=== PATIENT | male | born 1950 | race Caucasian/White ===

== ENCOUNTER → 2017-01-04 | Outpatient (CLI) | payer OTHER | LOC: BMCIMAGING 11:49 | PROVIDERS: ATTEND Podiatrist Foot & Ankle Surgery | DX: M19.072 Primary osteoarthritis, left ankle and foot (principal) ==

== ENCOUNTER 2017-01-23 20:59 | Emergency (ER) | payer OTHER ==
--- NOTE | 2017-01-23 22:07 | EDPHY ---
H & P Time Seen by Provider: 01/23/17 21:56 HPI/ROS: CHIEF COMPLAINT: Pain left axilla HISTORY OF PRESENT ILLNESS: 66-year-old male presents to the emergency department with pain in his left axilla since today. He denies any known trauma or injury. His friend who is a retired physician was concerned that he had red streaking noted on his left upper arm. Denies pain in the arm. He has no pain with range of motion. No chest pain or difficulty breathing. No pleuritic pain. Afebrile. REVIEW OF SYSTEMS: Constitutional: No fever, no chills. Eyes: No double or blurry vision. ENT: No sore throat. Respiratory: No cough, no shortness of breath. Cardiac: No chest pain. Gastrointestinal: No abdominal pain, vomiting or diarrhea. Genitourinary: No dysuria. Musculoskeletal: No neck or back pain. Skin: No rashes. Neurological: No headache. Past Medical/Surgical History: ACL repair, tonsillectomy Social History: Smoking Status: Never smoked Physical Exam: General Appearance: Alert, no distress. Afebrile. Eyes: Pupils equal and round. Extraocular motions are all intact. ENT: Mouth: Mucous membranes moist. Respiratory: No wheezing, rhonchi, or rales, lungs are clear to auscultation. Cardiovascular: Regular rate and rhythm. Gastrointestinal: Abdomen is soft and nontender, no masses, no rebound or guarding, bowel sounds normal. Neurological: Alert and oriented x 3, cranial nerves II through XII grossly intact Skin: Warm and dry, no rashes. No laceration or wounds noted. He does have what appears to be lymphangitis to the left medial humerus extending up into the left axilla. No palpable axillary lymphadenopathy. Musculoskeletal: Nontender to palpate along the cervical, thoracic or lumbar spine. Neck is supple. Extremities: Full range of motion and no peripheral edema. Psychiatric: Patient is oriented X 3, there is no agitation. Constitutional: Initial Vital Signs Temperature (C) 36.8 C 01/23/17 21:11 Heart Rate 67 01/23/17 21:11 Respiratory Rate 16 01/23/17 21:11 Blood Pressure 153/81 H 01/23/17 21:11 O2 Sat (%) 96 01/23/17 21:11 O2 Delivery Mode Room Air Allergies/Adverse Reactions: No Known Allergies Allergy (Unverified 01/23/17 21:11) Home Medications: Medication Instructions Recorded Aspirin 81mg (*) 01/23/17 Cephalexin [Keflex] 500 mg PO QID #28 cap 01/23/17 Medical Decision Making - Diagnostics Imaging Results: Imaging Impressions Extremity Venous Study 01/23/17 22:08 Impression: 1. No evidence of vein thrombosis in the left upper extremity. 2. Mildly prominent left axillary lymph nodes. Results called and discussed with SANJAY DELGADO on 01/23/2017 at 23:16 ED Course/Re-evaluation: 66-year-old male presents with pain in his right axilla as well as signs of lymphadenitis. Examine the patient's left upper extremity, I do not see any signs of skin infection or bite. No signs of septic joint. Patient was also seen examined by Dr. Pola Brown, secondary supervising physician, who recommended obtaining Doppler ultrasound to rule out DVT. Ultrasound was negative for DVT. Laboratory studies including CBC and chemistries were all within normal limits. Normal white blood cell count. Patient will be treated with oral antibiotics and warm compresses. Differential Diagnosis: Including but not limited to cellulitis, abscess, sepsis, DVT - Data Points Laboratory Results: Laboratory Results 01/23/17 23:10 01/23/17 23:10 01/23/17 01/23/17 23:10 23:10 WBC 7.37 10^3/uL 10^3/uL (3.80-9.50) RBC 4.58 10^6/uL 10^6/uL (4.40-6.38) Hgb 15.1 g/dL g/dL (13.7-17.5) Hct 43.1 % % (40.0-51.0) MCV 94.1 fL fL (81.5-99.8) MCH 33.0 pg pg (27.9-34.1) MCHC 35.0 g/dL g/dL (32.4-36.7) RDW 12.9 % % (11.5-15.2) Plt Count 218 10^3/uL 10^3/uL (150-400) MPV 10.7 fL fL (8.7-11.7) Neut % (Auto) 46.1 % % (39.3-74.2) Lymph % (Auto) 33.2 % % (15.0-45.0) [place] % (Auto) 13.6 % H % (4.5-13.0) Eos % (Auto) 5.7 % % (0.6-7.6) Baso % (Auto) 1.1 % % (0.3-1.7) Nucleat RBC Rel Count 0.0 % % (0.0-0.2) Absolute Neuts (auto) 3.40 10^3/uL 10^3/uL (1.70-6.50) Absolute Lymphs (auto) 2.45 10^3/uL 10^3/uL (1.00-3.00) Absolute Monos (auto) 1.00 10^3/uL H 10^3/uL (0.30-0.80) Absolute Eos (auto) 0.42 10^3/uL H 10^3/uL (0.03-0.40) Absolute Basos (auto) 0.08 10^3/uL 10^3/uL (0.02-0.10) Absolute Nucleated RBC 0.00 10^3/uL 10^3/uL (0-0.01) Immature Gran % 0.3 % % (0.0-1.1) Immature Gran # 0.02 10^3/uL 10^3/uL (0.00-0.10) Sodium 135 mEq/L mEq/L (134-144) Potassium 5.0 mEq/L mEq/L (3.5-5.2) Chloride 100 mEq/L mEq/L (97-110) Carbon Dioxide 28 mEq/l mEq/l (22-31) Anion Gap 7 mEq/L L mEq/L (8-16) BUN 18 mg/dL mg/dL (7-23) Creatinine 0.8 mg/dL mg/dL (0.7-1.3) Estimated GFR > 60 Glucose 99 mg/dL mg/dL (70-100) Calcium 9.7 mg/dL mg/dL (8.5-10.4) Medications Given: Discontinued Medications Cephalexin (Keflex 500 Mg Prepack#4) 1 btl TAKEHOME EDNOW ONE PRN Reason: Protocol Stop: 01/23/17 23:52 Last Admin: 01/24/17 00:01 Dose: 1 btl Departure - Departure Disposition: Home, Routine, Self-Care Clinical Impression: Axillary lymphadenopathy Condition: Good Instructions: Cephalexin (By mouth), Lymphadenopathy (ED), Adenitis (ED) Additional Instructions: Keflex 500 mg 4 times daily for 1 week. Apply warm compresses. Follow up with primary care provider this week to recheck. Return to the emergency department if you develop fever, increasing pain or swelling in your arm, or if you feel worse in any way. Referrals: RJ WASHINGTON [Primary Care Provider] - As per Instructions Prescriptions: Cephalexin [Keflex] 500 mg PO QID #28 cap
[2017-01-23 23:40] LABS: % IMMATURE GRANULYOCYTES 0.3 % (0.0-1.1); ABSOLUTE IMMATURE GRANULOCYTES 0.02 10^3/uL (0.00-0.10); ADD DIFF? NO; ADD MORPH? NO; ADD SCAN? NO; ATYPICAL LYMPHOCYTE FLAG 20 (0-99); FRAGMENT RBC FLAG 0 (0-99); HEMATOCRIT 43.1 % (40.0-51.0); HEMOGLOBIN 15.1 g/dL (13.7-17.5); LEFT SHIFT FLG 0 (0-99); LIPEMIA HEMOLYSIS FLAG 90 (0-99); MEAN CELL VOLUME 94.1 fL (81.5-99.8); MEAN PLATELET VOLUME 10.7 fL (8.7-11.7); PLATELET CLUMPS FLAG 0 (0-99); PLATELET COUNT 218 10^3/uL (150-400); RED BLOOD CELL COUNT 4.58 10^6/uL (4.40-6.38); RED CELL DISTRIBUTION WIDTH 12.9 % (11.5-15.2)
[2017-01-23 23:46] LABS: ANION GAP 7 mEq/L (8-16); CALCIUM 9.7 mg/dL (8.5-10.4); CARBON DIOXIDE 28 mEq/l (22-31); CHLORIDE 100 mEq/L (97-110); CREATININE 0.8 mg/dL (0.7-1.3); GLOMERULAR FILTRATION RATE > 60; GLUCOSE 99 mg/dL (70-100); SODIUM 135 mEq/L (134-144)
[2017-01-23] MEDS ORDERED: CEPHALEXIN 500MG PREPACK#4 BTL TAKEHOME ONE (23:51)
[2017-01-24 00:03] VITALS: BP 153/57; PULSE 77; RESP 18; TEMP 98.1; O2SAT 98
== END 2017-01-24 00:03 | disposition home or self-care (01) ==
DX: R59.1 Generalized enlarged lymph nodes (principal); Z79.82 Long term (current) use of aspirin

== ENCOUNTER → 2017-01-30 | Outpatient (CLI) | payer OTHER | LOC: BMCIMAGING 09:49 | PROVIDERS: ATTEND Family Medicine | DX: R59.1 Generalized enlarged lymph nodes (principal); L03.112 Cellulitis of left axilla ==